=== PATIENT | female | born 1950 | race Caucasian/White ===

== ENCOUNTER 2016-12-03 10:38 | Outpatient (CLI) | payer BC ==
[2016-12-03 18:52] LABS: ALBUMIN/GLOBULIN RATIO 1.4 (1.0-2.2); BILIRUBIN,TOTAL 1.1 mg/dL (0.2-1.0); BUN - BLOOD UREA NITROGEN 19 mg/dL (6-20); CALCIUM 9.6 mg/dL (8.5-10.3); CARBON DIOXIDE - CO2 25 mmol/L (21-32); CHLORIDE 103 mmol/L (101-111); CHOL/HDL RATIO 4.1 (<4.4); CHOLESTEROL 273 mg/dL; CREATININE 0.8 mg/dL (0.4-1.0); GFR - MDRD 72 (>89); GLUCOSE 97 mg/dL (70-100); HDL CHOLESTEROL 67 mg/dL; LDL/HDL RATIO 2.7 (<4.4); POTASSIUM 4.1 mmol/L (3.5-5.0); SODIUM 136 mmol/L (135-145); TOTAL PROTEIN 7.9 g/dL (6.7-8.2); TRIGLYCERIDES 134 mg/dL; VLDL CHOLESTEROL 27 mg/dL
== END 2016-12-03 10:39 | disposition home or self-care (01) ==
LOC: LAB.F 10:38
PROVIDERS: ATTEND Internal Medicine
DX: E78.00 Pure hypercholesterolemia, unspecified (principal); M85.80 Other specified disorders of bone density and structure, unspecified site
CPT/HCPCS: 36415; 80053; 80061

== ENCOUNTER 2017-06-21 02:00 | Outpatient (CLI) | payer MEDICARE, OTHER | END 2017-06-21 02:01 | disposition critical access hospital (66) | LOC: EMS 02:00 | PROVIDERS: ATTEND Surgery | DX: K62.5 Hemorrhage of anus and rectum (principal); R55 Syncope and collapse | CPT/HCPCS: A0425; A0427 ==

== ENCOUNTER 2017-06-21 02:26 | Inpatient (IN) | payer MEDICARE, OTHER ==
--- NOTE | 2017-06-21 02:40 | ED Physician Documentation ---
PD HPI GI BLEED - Stated complaint Stated Complaint: GI BLEED - Chief complaint Chief Complaint: Abd Pain - History obtained from History obtained from: Patient - History of Present Illness Timing - onset: Enter time (20:00), Other (tonight (06/20/17)) Timing - details: Abrupt onset, Waxing and waning Pain level max: 0 Pain level now: 0 Associated symptoms: BRBPR, Diarrhea, Near syncope / syncope. No: Vomiting, Maroon stool, Black/tarry stool, Constipation, Abdominal pain, Chest pain, Fever Contributing factors: No: Aspirin use, NSAID use, Anticoagulated Improved by: Other (no ameliorating factors) Worsened by: Other (no exacerbating factors) Similar symptoms before: Has not had sx before Recently seen: Not recently seen - Additional information Additional information: at 8 PM, patient had BRBPR and loose stool. She subsequently had three more episodes of BRBPR, each time appearing to be a larger amount/volume. Approximately 45 minutes SIDE BOSS, she had just finished having hematochezia and became lightheaded and had generalized weakness. her helped her to the ground, as she was too weak to stand and felt like she was going to pass out. When medics arrived, they found her still on the floor but awake and alert. She denies h/o GI bleeding Review of Systems Constitutional: reports: Reviewed and negative Eyes: reports: Reviewed and negative Ears: reports: Reviewed and negative Nose: reports: Reviewed and negative Throat: reports: Reviewed and negative Cardiac: reports: Reviewed and negative Respiratory: reports: Reviewed and negative GI: reports: Diarrhea, Bloody / black stool. denies: Abdominal Pain, Nausea, Vomiting, Constipation : denies: Dysuria, Frequency Skin: reports: Reviewed and negative Musculoskeletal: reports: Reviewed and negative Neurologic: reports: Generalized weakness. denies: Focal weakness, Numbness PD PAST MEDICAL HISTORY - Past Medical History Past Medical History: No - Past Surgical History Past Surgical History: Yes HEENT: Tonsil/Adenoidectomy - Present Medications Home Medications: Ambulatory Orders Medication Instructions Recorded Confirmed Gabapentin 300 mg PO TID #90 capsule 06/12/14 Hydrocodone/Acetaminophen 1 - 2 each PO Q6H PRN #15 tablet 06/12/14 [Hydrocodon-Acetaminophen 5-325] Zolpidem Tartrate [Ambien] 5 mg PO QPM PRN #15 tablet 06/12/14 06/21/17 - Allergies Allergies/Adverse Reactions: Allergies Allergy/AdvReac Type Severity Reaction Status Date / Time No Known Drug Allergies Allergy Verified 06/21/17 02:32 - Living Situation Living Situation: reports: With spouse/s.o. Living Arrangement: reports: At home - Social History Does the pt smoke?: No Smoking Status: Never smoker Does the pt drink ETOH?: No Does the pt have substance abuse?: No - Immunizations Immunizations are current?: Yes - POLST Patient has POLST: No PD ED PE NORMAL - Vitals Vital signs reviewed: Yes - General General: Alert and oriented X 3, No acute distress, Well developed/nourished - HEENT HEENT: Moist mucous membranes - Neck Neck: Supple, no meningeal sign - Cardiac Cardiac: RRR, No murmur - Respiratory Respiratory: No respiratory distress, Clear bilaterally - Abdomen Abdomen: Normal bowel sounds, Soft, Non tender, Non distended - Derm Derm: Normal color, Warm and dry - Extremities Extremities: No edema - Neuro Neuro: Alert and oriented X 3, optical glass silverer 2-12 intact, No motor deficit, No sensory deficit, Normal speech Eye Opening: Spontaneous Motor: Obeys Commands Verbal: Oriented GCS Score: 15 PD ED PE EXPANDED - Rectal Rectal: Heme Occult Pos - QC + (grossly bloody, strong/rapid guaiac (+)), Automotive Parts Manager present (RN ), Other. No: Mass, Hemorrhoid, Fissure Results - Vitals Vitals: Vital Signs - 24 hr 06/21/17 06/21/17 06/21/17 02:28 03:00 03:30 Temperature 36.7 C Heart Rate 72 62 66 Respiratory 16 18 Rate Blood Pressure 130/88 H 125/72 115/67 O2 Saturation 94 96 96 Oxygen O2 Source Room air - Labs Labs: Laboratory Tests 06/21/17 06/21/17 06/21/17 02:52 02:52 02:52 WBC 6.3 RBC 2.96 L Hgb 9.3 L Hct 27.7 L MCV 93.4 MCH 31.5 H MCHC 33.7 RDW 12.0 Plt Count 164 MPV 8.7 Neut # 3.3 Lymph # 2.0 [place] # 0.6 Eos # 0.3 Baso # 0.0 Absolute Nucleated RBC 0.00 Nucleated RBC % 0.0 PT 12.1 INR 1.1 APTT 23.3 L Sodium 139 Potassium 3.5 Chloride 106 Carbon Dioxide 24 Anion Gap 9.0 BUN 22 H Creatinine 0.8 Estimated GFR (MDRD) 72 L Glucose 105 H Calcium 7.8 L PD MEDICAL DECISION MAKING - ED course Complexity details: reviewed results, re-evaluated patient, considered differential, d/w patient, d/w family ED course: 9.3 hgb without previous results to compare to. Patient has no significant medical history and says she sees her primary care provider on a regular basis. D/W Dr. Hirsch, will admit to observation for further testing. Late in ED stay, patient had increasingly frequent episodes of BRBPR. She was given a bedside commode and I was called into the room by RN due to AMS; patient was sitting on bedside commode and was pale, awake but anxious. She wanted to stand, but instructed to remain seated. She then lost consciousness, unresponsive to verbal and tactile stimulus. Continued to breathe spontaneously , held on bedside commode by RN (to prevent her from falling). I palpated left radial pulse and it was slow and thready. After approximately 45-60 seconds, patient regained consciousness and within approximately 2-3 minutes, was back to being AAOx3. She was then diaphoretic and had no recollection of the event. BP cuff was unable to give a reading during the event (it made several attempts to measure but no reading), and upon regaining consciousness, her blood pressures were in a normal range (100s SBP). I communicated this information to Dr. Hirsch. Departure - Departure Disposition: ED Place in Observation Clinical Impression: Lower GI bleeding Condition: Stable Discharge Date/Time: 06/21/17 05:08
[2017-06-21 02:56] LABS: BASOPHILS % (AUTO) 0.7 %; EOSINOPHILS # (AUTO) 0.3 10^3/uL (0.0-0.7); EOSINOPHILS % (AUTO) 5.1 %; HGB - HEMOGLOBIN 9.3 g/dL (12.0-16.0); LYMPHOCYTES % (AUTO) 31.2 %; MEAN CORPUSCULAR HEMOGLOBIN 31.5 pg (27.0-31.0); MEAN CORPUSCULAR HGB CONC 33.7 g/dL (32.0-36.0); MEAN CORPUSCULAR VOLUME 93.4 fL (81.0-99.0); MEAN PLATELET VOLUME 8.7 fL (7.9-10.8); MONOCYTES # (AUTO) 0.6 10^3/uL (0.0-1.0); MONOCYTES % (AUTO) 10.1 %; NEUTROPHILS # (AUTO) 3.3 10^3/uL (1.5-6.6); NEUTROPHILS % (AUTO) 52.9 %; PLT - PLATELET COUNT 164 10^3/uL (130-450); RED BLOOD COUNT 2.96 10^6/uL (4.20-5.40); WHITE BLOOD COUNT 6.3 x10^3/uL (4.8-10.8)
[2017-06-21 03:00] LABS: INR 1.1 (0.8-1.2); PT - PROTHROMBIN TIME 12.1 secs (9.9-12.6)
[2017-06-21 03:04] LABS: CALCIUM 7.8 mg/dL (8.5-10.3); CREATININE 0.8 mg/dL (0.4-1.0)
[2017-06-21] MEDS ORDERED: SODIUM CHLORIDE FLUSH 0.9% 10 ML SYRINGE IVP PRN (03:50)
[2017-06-21] MEDS ORDERED: TEMAZEPAM 15 MG CAPSULE PO PRN (03:50)
[2017-06-21] MEDS ORDERED: PROCHLORPERAZINE 10 MG/2 ML VIAL IVP PRN (03:50)
--- NOTE | 2017-06-21 03:55 | HISTORY & PHYSICAL EXAMINATION ---
Chief Complaint - Chief Complaint Chief Complaint: Lightheadedness, rectal bleeding History of Present Illness - Admitted From Admitted From:: home - History Obtained From History obtained from: patient, ED physician - History of Present Illness HPI Comment/Other: Mrs. Radha Borjas is a very pleasant 67-year-old female with a past medical history that is remarkable for its brevity who began to have blood per rectum this evening. After the fourth time the patient felt like she was getting lightheaded and so her asked for EMS to bring her to the emergency department. Upon examination in the emergency department the patient was found to be guaiac positive but otherwise was asymptomatic and there were no other abnormalities found. Because of the hemoglobin of 9.3 the patient's ER physician feels that the patient should be admitted because she may become hemodynamically unstable sometime in the future and so that we can monitor her hemoglobin in the morning. She will therefore be admitted to an observation bed and will recheck her hemoglobin in 3 hours. History - Past Medical History MRSA Hx?: No - Past Surgical History HEENT: reports: Tonsil/Adenoidectomy - Family & Social History Family History: Mother: Alive and Well, Father: (age 90, natural causes ) Family History Comment/Other: The patient says that her family is very healthy and that her father had dementia and of pneumonia at age 90. She denies any knowledge of any hypertension, hypercholesterolemia, coronary artery disease , myocardial infarctions, cancer, CVAs, or diabetes mellitus in the family. Living arrangement: At home Living Situation: With spouse/s.o. - Substance History Use: Uses substance without health or social issues: Alcohol Abuse: Recurrent use of substance despite neg consequences: NONE Dependence: Experiences withdrawal or developed tolerances: NONE - POLST Patient has POLST: No POLST Status: DNR Meds/Allgy - Home Medications Home Medications: Ambulatory Orders Medication Instructions Recorded Confirmed Gabapentin 300 mg PO TID #90 capsule 06/12/14 Hydrocodone/Acetaminophen 1 - 2 each PO Q6H PRN #15 tablet 06/12/14 [Hydrocodon-Acetaminophen 5-325] Zolpidem Tartrate [Ambien] 5 mg PO QPM PRN #15 tablet 06/12/14 - Allergies Allergies/Adverse Reactions: Allergies Allergy/AdvReac Type Severity Reaction Status Date / Time No Known Drug Allergies Allergy Verified 06/21/17 02:32 Review of Systems - Constitutional Constitutional: reports: Weakness. denies: Fatigue, Fever, Chills, Malaise - Eyes Eyes: denies: Pain, Irritation, Amaurosis, Field loss, Dipolpia - Ears, Nose & Throat Ears, Nose & Throat: denies: Hearing loss, Tinnitus, Vertigo, Nosebleeds, Sore throat - Cardiovascular Cariovascular: reports: Lightheadedness. denies: Irregular heart rate, Palpitations, Chest pain, Edema, Syncope - Respiratory Respiratory: denies: Cough, Sputum production, Wheezing, Snoring, SOB at rest, SOB with exertion - Gastrointestinal Gastrointestinal: reports: Diarrhea, Change in bowel habits, Rectal bleeding, Bloody stools. denies: Abdominal pain, Abdominal distention, Constipation, Nausea, Vomiting - Genitourinary Genitourinary: denies: Dysuria, Frequency, Urgency, Hematuria - Musculoskeletal Musculoskeletal: denies: Muscle pain, Back pain, Muscle aches, Stiffness - Integumentary Integumentary: denies: Rash, Pruritis, Lesions, Dryness - Neurological Neurological: denies: General weakness, Focal weakness, Headache, Dizziness - Psychiatric Psychiatric: denies: Depression, Anxiety, Suicidal, Hallucinations - Endocrine Endocrine: denies: Polyuria, Polydypsia, Polyphagia - Hematologic/Lymphatic Hematologic/Lymphatic: denies: Anemia, Bruising, Petechiae, Lymphadenopathy - All Other Systems All Other Systems: reports: Reviewed and negative Exam - Vital Signs Reviewed Vital Signs: Yes Vital Signs: Vital Signs x48h Temp Pulse Resp BP Pulse Ox 06/21/17 02:28 36.7 C 72 16 130/88 H 94 - Physical Exam General Appearance: positive: No acute distress, Alert Eyes Bilateral: positive: Normal inspection, PERRL, EOMI, No lid inflammation, Conjunctivae nml, No scleral icterus ENT: positive: ENT inspection nml, Pharynx nml, No signs of dehydration Neck: positive: Nml inspection, Thyroid nml, No JVD, Trachea midline. negative : Thyromegaly Respiratory: positive: Chest non-tender, No respiratory distress, Breath sounds nml. negative: Wheezes, Rales, Rhonchi Cardiovascular: positive: Regular rate & rhythm, No murmur, No gallop Peripheral Pulses: positive: 1+ Abdomen: positive: Non-tender, No organomegaly, Nml bowel sounds, No distention. negative: Guarding, Rebound, Mass Rectal: positive: Stool - heme POS, Bloody stool. negative: Mass Back: positive: Nml inspection. negative: CVA tenderness (R), CVA tenderness (L ) Skin: positive: Color nml, No rash, Warm, Dry. negative: Cyanosis Extremities: positive: Non-tender, Full ROM, Nml appearance Neurologic/Psychiatric: positive: Oriented x3, CN's nml (2-12), Motor nml, Sensation nml, Mood/affect nml Conclusion/Plan - Problem List (1) GI bleed Conclusion/Plan: The patient is remarkably healthy has no significant past medical history to speak of. She has a hemoglobin of 9.3. She is asymptomatic at this time. We will repeat her hemoglobin in a few hours and unless there has been a significant drop we will discharge the patient and she will follow-up with a ton container shipper or surgeon for a colonoscopy as an outpatient. - Lab Results Lab results reviewed: Yes Yonis Bones: 06/21/17 02:52 06/21/17 02:52 Core Measures - Anticipated LOS I expect patient to be DC'd or transferred within 96 hours.: Yes - DVT/VTE - Prophylaxis VTE/DVT Device ordered at admit?: Yes
[2017-06-21] MEDS ORDERED: SODIUM CHLORIDE 0.9% 1,000 ML IV ONE (05:16)
[2017-06-21 05:23] LABS: HGB - HEMOGLOBIN 8.6 g/dL (12.0-16.0); MEAN CORPUSCULAR HGB CONC 33.1 g/dL (32.0-36.0); MEAN CORPUSCULAR VOLUME 93.6 fL (81.0-99.0); MEAN PLATELET VOLUME 8.3 fL (7.9-10.8); RED BLOOD COUNT 2.77 10^6/uL (4.20-5.40); RED CELL DISTRIBUTION WIDTH 11.9 % (12.0-15.0); WHITE BLOOD COUNT 8.8 x10^3/uL (4.8-10.8)
[2017-06-21] MEDS: GABAPENTIN 300 MG CAPSULE PO SCH ×2 (06:24→14:47)
[2017-06-21] MEDS: SODIUM CHLORIDE FLUSH 0.9% 10 ML SYRINGE IVP SCH ×3 (07:00→23:47)
[2017-06-21] MEDS: PANTOPRAZOLE 40 MG TABLET PO SCH (07:28)
--- NOTE | 2017-06-21 11:04 | CONSULTATION NOTE ---
Referring Provider Name of Referring Provider:: Isra Mina Consult Date: 06/21/17 Chief Complaint - Chief Complaint Chief Complaint: GI bleed History of Present Illness - Admitted From Admitted From:: ER - History Obtained From Records Reviewed: yes History obtained from: pt, records Exam Limitations: nonw - History of Present Illness HPI Comment/Other: 67 yo female with sudden onset of painless BRBPR last night, multiple episodes associated with syncope, which prompted evaluation in the ER early this morning and subsequent admission for observation. She reports no prior similar sx and no subsequent episodes since 0430 this morning. No hx melena, abdominal pain, wt loss. She reports regular, occasionally loose bms, and no hx constipation. She is s/p remote I & D of a perirectal abscess; she denies any hemorrhoidal sx. She reports having a nl colonoscopy approximately 10 years ago. Neg Fh GI tumors. She reports heartburn and waterbrash for the past 7 months, improved with dietary changes and elevating the HOB. No dysphagia; no prior hx of PUD, no prior UGI evaluations. No recent use of NSAIDs; alcohol intake 1.5 glasses wine/day; no tobacco; caffeine: 3-4 cups of tea/day. No N/V, fever, chills. She has been hemodynamically stable since admission. Hgb dropped from 9.3 to 8.6 since admission. History - Past Medical History Cardiovascular: reports: None Respiratory: reports: None Neuro: reports: None Endocrine/Autoimmune: reports: None GI: reports: None : reports: None HEENT: reports: Chronic vision loss Psych: reports: Other (insomnia) Musculoskeletal: reports: None Derm: reports: None MRSA Hx?: No Other Past Medical History: Shingles - Past Surgical History General: reports: Colonoscopy (approx 2007, nl), Other (I & D perirectal abscess ) HEENT: reports: Tonsil/Adenoidectomy - Family & Social History Living arrangement: At home Living Situation: With spouse/s.o. - Substance History Use: Uses substance without health or social issues: Alcohol Abuse: Recurrent use of substance despite neg consequences: NONE Dependence: Experiences withdrawal or developed tolerances: NONE - POLST Patient has POLST: No POLST Status: DNR Meds/Allgy - Home Medications Home Medications: Ambulatory Orders Medication Instructions Recorded Confirmed Gabapentin 300 mg PO TID #90 capsule 06/12/14 Zolpidem Tartrate [Ambien] 10 mg PO QPM PRN 06/21/17 06/21/17 - Allergies Allergies/Adverse Reactions: Allergies Allergy/AdvReac Type Severity Reaction Status Date / Time No Known Drug Allergies Allergy Verified 06/21/17 02:32 Review of Systems - Constitutional Constitutional: denies: Fever, Chills, Weakness, Poor appetite, Weight gain, Weight loss - Cardiovascular Cariovascular: reports: Syncope - Respiratory Respiratory: denies: Cough, Sputum production, Wheezing, SOB at rest, SOB with exertion - Gastrointestinal Gastrointestinal: reports: Rectal bleeding, Bloody stools, Reflux/heartburn. denies: Abdominal pain, Abdominal distention, Constipation, Diarrhea, Black stools, Nausea, Vomiting, Bile emesis, Coffee grounds emesis, Bloating, Poor appetite - Psychiatric Psychiatric: reports: Other (insomnia) - Hematologic/Lymphatic Hematologic/Lymphatic: denies: Bruising, Blood clots, Bleeding tendencies - All Other Systems All Other Systems: reports: Reviewed and negative Exam - Vital Signs Reviewed Vital Signs: Yes Vital Signs: Vital Signs x48h Temp Pulse Pulse Pulse Pulse Pulse Resp 06/21/17 08:45 87 88 90 06/21/17 07:26 36.4 C L 65 19 06/21/17 05:08 36.2 C L 71 16 06/21/17 05:00 66 16 06/21/17 04:49 58 L 18 06/21/17 04:00 71 16 BP BP BP BP BP Pulse Ox 06/21/17 08:45 126/67 133/93 H 115/73 06/21/17 07:26 134/67 H 100 06/21/17 05:08 108/60 96 06/21/17 05:00 127/82 H 96 06/21/17 04:49 97/64 96 06/21/17 04:00 125/81 H 96 - Physical Exam General Appearance: positive: No acute distress, Alert Eyes Bilateral: positive: Normal inspection, PERRL, EOMI, Conjunctivae nml, No scleral icterus ENT: positive: ENT inspection nml, Pharynx nml, No signs of dehydration Neck: positive: Nml inspection, Thyroid nml, No JVD, Trachea midline. negative : Thyromegaly, Lymphadenopathy (R), Lymphadenopathy (L) Respiratory: positive: Chest non-tender, No respiratory distress, Breath sounds nml. negative: Wheezes, Rales, Rhonchi Cardiovascular: positive: Regular rate & rhythm, No murmur, No gallop Abdomen: positive: Non-tender, No organomegaly, No distention. negative: Guarding, Rebound, Hepatomegaly, Splenomegaly, Mass Skin: positive: Color nml, No rash, Warm, Dry Extremities: positive: Non-tender, No pedal edema. negative: Calf tenderness Neurologic/Psychiatric: positive: Oriented x3 Conclusion/Plan - Diagnosis Diagnosis: GI bleed; likely lower GI cause such as CRC, angiodysplasia, diverticular disease, internal hemorrhoids; upper gi sources as well should be considered such as PUD, H.pylori infection, GERD, UGI neoplasm, etc. She currently is hemodynamically stable but significant drop in Hgb suggests a major bleed. - Plan Plan: EGD/Colonoscopy in AM after prep today. PAR conf and consent obtained. Agree with empiric PPI therapy today. - Lab Results Lab results reviewed: Yes Fish Bones: 06/21/17 05:18 06/21/17 02:52
[2017-06-21] MEDS: POLYETHYLENE GLYCOL 3350 17 GM PACKET PO SCH (14:38)
[2017-06-21] MEDS: SODIUM/POTASSIUM/MAG SULFATES 354 ML PREP KIT PO SCH (16:57)
[2017-06-21 22:44] LABS: HGB - HEMOGLOBIN 8.5 g/dL (12.0-16.0)
[2017-06-22] MEDS: D5.45NS W/20 MEQ KCL 1,000 ML IV SCH ×2 (02:02→09:57)
[2017-06-22] MEDS: SODIUM/POTASSIUM/MAG SULFATES 354 ML PREP KIT PO SCH ×2 (03:56→07:23)
[2017-06-22 06:04] LABS: HGB - HEMOGLOBIN 8.9 g/dL (12.0-16.0); MEAN CORPUSCULAR HEMOGLOBIN 31.5 pg (27.0-31.0); MEAN CORPUSCULAR HGB CONC 33.5 g/dL (32.0-36.0); MEAN PLATELET VOLUME 8.7 fL (7.9-10.8); RED BLOOD COUNT 2.83 10^6/uL (4.20-5.40); WHITE BLOOD COUNT 5.5 x10^3/uL (4.8-10.8)
[2017-06-22] MEDS: PANTOPRAZOLE 40 MG TABLET PO SCH (06:44)
[2017-06-22] MEDS: POLYETHYLENE GLYCOL 3350 17 GM PACKET PO SCH (07:22)
[2017-06-22] MEDS: SODIUM CHLORIDE FLUSH 0.9% 10 ML SYRINGE IVP SCH ×2 (07:22→20:34)
[2017-06-22] MEDS ORDERED: MIDAZOLAM 2 MG/2 ML VIAL IVP ONE (07:45)
[2017-06-22] MEDS ORDERED: fentaNYL 250 MCG/5 ML VIAL IVP ONE (07:45)
[2017-06-22] MEDS ORDERED: LACTATED RINGERS 1,000 ML IV ONE (07:45)
[2017-06-22] MEDS ORDERED: LIDOCAINE 1% 50 ML MDV TOP ONE (08:04)
[2017-06-22] MEDS ORDERED: LIDO GARGLE 30 ML BOTTLE ONE (08:04)
[2017-06-22] MEDS ORDERED: BENZOCAINE/TETRACAINE/BUTAMBEN SPRAY 56 GM TOP ONE (08:05)
[2017-06-22 10:58] LABS: HGB - HEMOGLOBIN 7.2 g/dL (12.0-16.0)
[2017-06-22] MEDS: FERROUS SULFATE 325 MG TABLET PO SCH (13:26)
--- NOTE | 2017-06-22 14:45 | PROVIDER PROGRESS NOTE ---
Subjective - Prog Note Date Prog Note Date: 06/22/17 - Subjective Pt reports feeling: Improved Subjective: pt is alert and oriented. Pt does not report any complaints today. Pt does report she had fresh GI bleeding on yesterday. Current Medications - Current Medications Current Medications: Active Medications Ferrous Sulfate (Feosol) 325 mg PO DAILYWM [facility] Last Admin: 06/22/17 13:26 Dose: 325 mg Pantoprazole Sodium (Protonix) 40 mg PO QDAC [facility] Last Admin: 06/22/17 06:44 Dose: Not Given Polyethylene Glycol (Miralax) 17 gm PO DAILY [facility] Last Admin: 06/22/17 07:22 Dose: Not Given Prochlorperazine Edisylate (Compazine Inj) 10 mg IVP Q6HR PRN PRN Reason: Nausea / Vomiting Sodium Chloride (Normal Saline Flush 0.9%) 10 ml IVP PRN PRN PRN Reason: NEEDED PER PROVIDER ORDERS Sodium Chloride (Normal Saline Flush 0.9%) 10 ml IVP 0100,0900,1700 [facility] Last Admin: 06/22/17 07:22 Dose: Not Given Sodium Sulfate/Potass Sulf/Mag Sulf (Suprep Bowel Prep Kit) 177 ml PO 1700, 0400 [facility] Last Admin: 06/22/17 07:23 Dose: Not Given Temazepam (Restoril) 15 mg PO QPM PRN PRN Reason: Insomnia Zolpidem Tartrate [Ambien] 5 mg PO QPM PRN 06/21/17 Objective - Vital Signs/Intake & Output Reviewed Vital Signs: Yes Vital Signs: Vital Signs x48h Temp Pulse Resp BP Pulse Ox 06/22/17 12:05 36.7 C 78 17 128/59 L 100 06/22/17 11:28 36.6 C 06/22/17 10:40 82 18 133/64 H 100 06/22/17 09:22 82 16 102/55 L 100 06/22/17 08:45 79 18 91/49 L 100 06/22/17 07:43 36.4 C L 78 18 116/63 99 Intake & Output: Intake & Output 06/19/17 06/20/17 06/21/17 06/22/17 23:59 23:59 23:59 23:59 Intake Total 2009 1589.166 Balance 2009 1589.166 - Objective General Appearance: positive: No acute distress, Alert. negative: Lethargic Eyes Bilateral: positive: Normal inspection, PERRL, No lid inflammation, Conjunctivae nml ENT: positive: ENT inspection nml, Pharynx nml, No signs of dehydration. negative: Purulent nasal drainage, Pharyngeal erythema, Oral lesions Neck: positive: Nml inspection, Thyroid nml, No JVD, Trachea midline. negative : Thyromegaly, Stiff neck, Carotid bruit, Swelling/bruising, Tracheal deviation Respiratory: positive: Chest non-tender, No respiratory distress, Breath sounds nml. negative: Wheezes, Rales, Rhonchi Cardiovascular: positive: Regular rate & rhythm, No murmur, No gallop. negative : Irregularly irregular, Extrasystoles, Tachycardia, Bradycardia, Systolic murmur, Diastolic murmur Peripheral Pulses: 2+ Radial (R), 2+ Radial (L), 2+ Dorsalis pedis (R), 2+ Dorsalis pedis (L) Abdomen: positive: Non-tender, No organomegaly, Nml bowel sounds, No distention. negative: Tenderness, Guarding, Rebound Back: positive: Nml inspection. negative: CVA tenderness (R), CVA tenderness (L ) Skin: positive: Color nml, No rash, Warm, Dry. negative: Cyanosis, Diaphoresis , Pallor Extremities: positive: Non-tender, Full ROM, Nml appearance. negative: Calf tenderness, Joint swelling, Tierney's sign/cords Neurologic/Psychiatric: positive: Oriented x3, Motor nml, Sensation nml, Mood/ affect nml. negative: Sensory loss, Facial droop, Slurred/abnml speech, Depressed mood/affect - Lab Results Fish Bones: 06/22/17 10:42 06/21/17 02:52 Other Labs: Lab Results x24hrs 06/22/17 06/22/17 06/22/17 Range/Units 11:50 10:42 05:52 WBC 5.5 (4.8-10.8) x10^3/uL RBC 2.83 L (4.20-5.40) 10^6/uL Hgb 7.2 L 8.9 L (12.0-16.0) g/dL Hct 21.6 L 26.6 L (37.0-47.0) % MCV 94.0 (81.0-99.0) fL MCH 31.5 H (27.0-31.0) pg MCHC 33.5 (32.0-36.0) g/dL RDW 12.0 (12.0-15.0) % Plt Count 201 (130-450) 10^3/uL MPV 8.7 (7.9-10.8) fL Blood Type O POSITIVE Antibody Screen NEGATIVE 06/21/17 Range/Units 22:30 WBC (4.8-10.8) x10^3/uL RBC (4.20-5.40) 10^6/uL Hgb 8.5 L (12.0-16.0) g/dL Hct 25.7 L (37.0-47.0) % MCV (81.0-99.0) fL MCH (27.0-31.0) pg MCHC (32.0-36.0) g/dL RDW (12.0-15.0) % Plt Count (130-450) 10^3/uL MPV (7.9-10.8) fL Blood Type Antibody Screen Assessment/Plan - Problem List (1) GI bleed Impression: - Problem List Conclusion/Plan: pt had EGD and colonoscopy today morning. surgeon report pt did not have acute bleed in the EGD and colonoscopy but report pt had diverticurosis which could cause pt had GI bleeding. Also pt had hx of gastric ulcer. Surgeon recommend pt stay one more night at hospital to monitor if pt continue to have GI bleeding. pt is asymptomatic for anemia currently switch pt into inpt status add H&H add type and screen continue vital monitor The patient is remarkably healthy has no significant past medical history to speak of. She has a hemoglobin of 9.3. She is asymptomatic at this time. We will repeat her hemoglobin in a few hours and unless there has been a significant drop we will discharge the patient and she will follow-up with a mobile equipment operator or surgeon for a colonoscopy as an outpatient.
--- NOTE | 2017-06-22 17:50 | PROVIDER PROGRESS NOTE ---
Subjective - Prog Note Date Prog Note Date: 06/22/17 Prog Note Time: 17:48 - Subjective Pt reports feeling: Improved (no bm's since EGD/colon this am.) Objective - Vital Signs/Intake & Output Reviewed Vital Signs: Yes Vital Signs: Vital Signs x48h Temp Pulse Resp BP Pulse Ox 06/22/17 15:47 36.9 C 85 18 126/58 L 98 06/22/17 12:05 36.7 C 78 17 128/59 L 100 06/22/17 11:28 36.6 C 06/22/17 10:40 82 18 133/64 H 100 Intake & Output: Intake & Output 06/19/17 06/20/17 06/21/17 06/22/17 23:59 23:59 23:59 23:59 Intake Total 2009 1589.166 Balance 2009 1589.166 - Objective General Appearance: positive: No acute distress, Alert Eyes Bilateral: positive: Conjunctivae nml, No scleral icterus ENT: positive: No signs of dehydration Neck: positive: Nml inspection Skin: positive: Color nml - Lab Results Fish Bones: 06/22/17 10:42 06/21/17 02:52 Other Labs: Lab Results x24hrs 06/22/17 06/22/17 06/22/17 Range/Units 11:50 10:42 05:52 WBC 5.5 (4.8-10.8) x10^3/uL RBC 2.83 L (4.20-5.40) 10^6/uL Hgb 7.2 L 8.9 L (12.0-16.0) g/dL Hct 21.6 L 26.6 L (37.0-47.0) % MCV 94.0 (81.0-99.0) fL MCH 31.5 H (27.0-31.0) pg MCHC 33.5 (32.0-36.0) g/dL RDW 12.0 (12.0-15.0) % Plt Count 201 (130-450) 10^3/uL MPV 8.7 (7.9-10.8) fL Blood Type O POSITIVE Antibody Screen NEGATIVE 06/21/17 Range/Units 22:30 WBC (4.8-10.8) x10^3/uL RBC (4.20-5.40) 10^6/uL Hgb 8.5 L (12.0-16.0) g/dL Hct 25.7 L (37.0-47.0) % MCV (81.0-99.0) fL MCH (27.0-31.0) pg MCHC (32.0-36.0) g/dL RDW (12.0-15.0) % Plt Count (130-450) 10^3/uL MPV (7.9-10.8) fL Blood Type Antibody Screen - Other Results/Comments Other Results/Comments: EGD showed LA Grade B erosive esophagitis, nonbleeding. Colon showed moderate left sided tics, a small amount of fresh/recent blood in colon, no active bleeding site identified. Assessment/Plan - Problem List (1) GI bleed Impression: clinically resolving, likely diverticular in nature. Rec observation overnight and consider d/c home tomorrow if remains stable. If rebleeds, pt will need a localization study such as a tagged RBC scan. Qualifiers: GI bleed type/associated pathology: diverticulosis Qualified Code(s): K57.91 - Diverticulosis of intestine, part unspecified, without perforation or abscess with bleeding (2) Erosive esophagitis Impression: LA Grade B, probably not the cause of this patient's GI bleed; Rec: RX PPI x 3 months, then repeat EGD to document healing. Medications/Allergies - Medications Active Medication List: Active Medications Ferrous Sulfate (Feosol) 325 mg PO DAILYWM [facility] Last Admin: 06/22/17 13:26 Dose: 325 mg Pantoprazole Sodium (Protonix) 40 mg PO QDAC [facility] Last Admin: 06/22/17 06:44 Dose: Not Given Polyethylene Glycol (Miralax) 17 gm PO DAILY [facility] Last Admin: 06/22/17 07:22 Dose: Not Given Prochlorperazine Edisylate (Compazine Inj) 10 mg IVP Q6HR PRN PRN Reason: Nausea / Vomiting Sodium Chloride (Normal Saline Flush 0.9%) 10 ml IVP PRN PRN PRN Reason: NEEDED PER PROVIDER ORDERS Sodium Chloride (Normal Saline Flush 0.9%) 10 ml IVP 0100,0900,1700 [facility] Last Admin: 06/22/17 07:22 Dose: Not Given Sodium Sulfate/Potass Sulf/Mag Sulf (Suprep Bowel Prep Kit) 177 ml PO 1700, 0400 [facility] Last Admin: 06/22/17 07:23 Dose: Not Given Temazepam (Restoril) 15 mg PO QPM PRN PRN Reason: Insomnia Zolpidem Tartrate [Ambien] 5 mg PO QPM PRN 06/21/17 - Allergies Allergies/Adverse Reactions: Allergies Allergy/AdvReac Type Severity Reaction Status Date / Time No Known Drug Allergies Allergy Verified 06/21/17 02:32
[2017-06-22 19:00] LABS: HGB - HEMOGLOBIN 7.3 g/dL (12.0-16.0)
[2017-06-23] MEDS: SODIUM CHLORIDE FLUSH 0.9% 10 ML SYRINGE IVP SCH ×2 (00:04→09:36)
[2017-06-23] MEDS: SODIUM/POTASSIUM/MAG SULFATES 354 ML PREP KIT PO SCH (00:09)
[2017-06-23 02:15] LABS: HGB - HEMOGLOBIN 6.4 g/dL (12.0-16.0)
[2017-06-23] MEDS ORDERED: ACETAMINOPHEN 325 MG TABLET PO SCH (02:33)
[2017-06-23] MEDS: diphenhydrAMINE 25 MG CAPSULE PO SCH ×2 (03:28→04:29)
[2017-06-23] MEDS: PANTOPRAZOLE 40 MG TABLET PO SCH (06:13)
--- NOTE | 2017-06-23 08:30 | PROVIDER PROGRESS NOTE ---
Assessment/Plan - Problem List (1) GI bleed Qualifiers: GI bleed type/associated pathology: diverticulosis Qualified Code(s): K57.91 - Diverticulosis of intestine, part unspecified, without perforation or abscess with bleeding Assessment/Plan: Evidence of continued active bleeding; exact site unclear, but probably colonic , diverticular in etiology. Rec: Transfuse and transfer to facility for localization procedure such as RBC scan &/or angiography with possible IR therapy. Discussed with pt and hospitialist who agrees with this plan. (2) Erosive esophagitis Assessment/Plan: asymptomatic on PPI therapy. Rec: continue same; needs f/u EGD in 2-3 months to document satisfactory healing. - Current Meds Current Meds: Current Medications Generic Name Dose Route Start Last Admin Trade Name Freq PRN Reason Stop Dose Admin Ferrous Sulfate 325 mg 06/22/17 12:00 06/22/17 13:26 Feosol PO 325 mg DAILYWM [facility] Administration Pantoprazole Sodium 40 mg 06/21/17 07:00 06/23/17 06:13 Protonix PO 40 mg QDAC [facility] Administration Polyethylene Glycol 17 gm 06/21/17 09:00 06/22/17 07:22 Miralax PO Not Given DAILY [facility] Sodium Chloride 10 ml 06/21/17 03:50 06/23/17 03:35 Normal Saline Flush 0.9% IVP 10 ml PRN PRN Administration NEEDED PER PROVIDER ORDERS Sodium Chloride 10 ml 06/21/17 09:00 06/23/17 00:04 Normal Saline Flush 0.9% IVP 10 ml 0100,0900,1700 [facility] Administration Sodium Sulfate/Potass Sulf/Mag Sulf 177 ml 06/21/17 17:00 06/23/17 00:09 Suprep Bowel Prep Kit PO Not Given 1700,0400 [facility] - Lab Result Lab results reviewed: Yes Fish Bone Diagrams: 06/23/17 02:05 06/21/17 02:52 - Additional Planning Condition/Complexity: Stable (hemodynamicaly stable but active bleeding continues.) My Orders: My Active Orders 06/22/17 Lunch Regular Diet [DIET] Plan Discussed with:: Patient, Other (hospitalist) Time Spent: 15-30 minutes Subjective - Subjective Patient Reports: Resting Comfortably, Other (passing 3 grossly bloody stools overnight) Nursing Reports: No Complaints Objective Vital Signs: Vital Signs - 24 hr 06/22/17 06/22/17 06/22/17 08:45 09:22 10:40 Temperature Heart Rate Heart Rate [ Apical] Heart Rate [ 79 82 82 Brachial] Respiratory 18 16 18 Rate Blood Pressure Blood Pressure 91/49 L 102/55 L 133/64 H [Right Brachial artery] O2 Saturation 100 100 100 06/22/17 06/22/17 06/22/17 11:28 12:05 15:47 Temperature 36.6 C 36.7 C 36.9 C Heart Rate Heart Rate [ Apical] Heart Rate [ 78 85 Brachial] Respiratory 17 18 Rate Blood Pressure Blood Pressure 128/59 L 126/58 L [Right Brachial artery] O2 Saturation 100 98 06/22/17 06/22/17 06/23/17 19:12 20:32 00:48 Temperature 37.0 C 37.1 C 36.4 C L Heart Rate Heart Rate [ 95 Apical] Heart Rate [ 103 H 91 Brachial] Respiratory 18 18 16 Rate Blood Pressure Blood Pressure 105/58 L 108/60 119/61 [Right Brachial artery] O2 Saturation 100 98 99 06/23/17 06/23/17 06/23/17 03:37 04:05 04:43 Temperature 36.8 C 36.6 C 36.6 C Heart Rate 87 84 Heart Rate [ Apical] Heart Rate [ 74 Brachial] Respiratory 16 16 16 Rate Blood Pressure 127/61 128/61 Blood Pressure 115/50 L [Right Brachial artery] O2 Saturation 99 06/23/17 06/23/17 07:52 07:58 Temperature 36.9 C 36.9 C Heart Rate 72 78 Heart Rate [ Apical] Heart Rate [ Brachial] Respiratory 16 16 Rate Blood Pressure 131/58 H 131/58 H Blood Pressure [Right Brachial artery] O2 Saturation Oxygen O2 Source Nasal cannula I&O (Last 24 Hrs): Intake and Output Totals x24h 06/21/17 06/22/17 06/23/17 23:59 23:59 23:59 Intake Total 2009 1789.166 372 Output Total 200 Balance 2009 1789.166 172 General: Alert, No acute distress Neck: No JVD Abdomen: Soft, No tenderness, No hepatospenomegaly, No masses Rectal: Bloody Stool (x 3 overnight) - Results Results: Laboratory Results WBC 5.5 x10^3/uL (4.8-10.8) 06/22/17 05:52 RBC 2.83 10^6/uL (4.20-5.40) L 06/22/17 05:52 Hgb 6.4 g/dL (12.0-16.0) L* 06/23/17 02:05 Hct 18.6 % (37.0-47.0) L* 06/23/17 02:05 MCV 94.0 fL (81.0-99.0) 06/22/17 05:52 MCH 31.5 pg (27.0-31.0) H 06/22/17 05:52 MCHC 33.5 g/dL (32.0-36.0) 06/22/17 05:52 RDW 12.0 % (12.0-15.0) 06/22/17 05:52 Plt Count 201 10^3/uL (130-450) 06/22/17 05:52 MPV 8.7 fL (7.9-10.8) 06/22/17 05:52 Neut # 3.3 10^3/uL (1.5-6.6) 06/21/17 02:52 Lymph # 2.0 10^3/uL (1.5-3.5) 06/21/17 02:52 [place] # 0.6 10^3/uL (0.0-1.0) 06/21/17 02:52 Eos # 0.3 10^3/uL (0.0-0.7) 06/21/17 02:52 Baso # 0.0 10^3/uL (0.0-0.1) 06/21/17 02:52 Absolute Nucleated RBC 0.00 x10^3/uL 06/21/17 02:52 Nucleated RBC % 0.0 /100WBC 06/21/17 02:52 PT 12.1 secs (9.9-12.6) 06/21/17 02:52 INR 1.1 (0.8-1.2) 06/21/17 02:52 APTT 23.3 secs (24.9-33.3) L 06/21/17 02:52 Sodium 139 mmol/L (135-145) 06/21/17 02:52 Potassium 3.5 mmol/L (3.5-5.0) 06/21/17 02:52 Chloride 106 mmol/L (101-111) 06/21/17 02:52 Carbon Dioxide 24 mmol/L (21-32) 06/21/17 02:52 Anion Gap 9.0 (6-13) 06/21/17 02:52 BUN 22 mg/dL (6-20) H 06/21/17 02:52 Creatinine 0.8 mg/dL (0.4-1.0) 06/21/17 02:52 Estimated GFR (MDRD) 72 (>89) L 06/21/17 02:52 Glucose 105 mg/dL (70-100) H 06/21/17 02:52 Calcium 7.8 mg/dL (8.5-10.3) L 06/21/17 02:52 Blood Type O POSITIVE 06/22/17 11:50 Blood Type Recheck O POSITIVE 06/23/17 02:05 Antibody Screen NEGATIVE 06/22/17 11:50 Crossmatch IS Only See Detail 06/22/17 11:50
[2017-06-23] MEDS: POLYETHYLENE GLYCOL 3350 17 GM PACKET PO SCH (09:36)
[2017-06-23] MEDS: FERROUS SULFATE 325 MG TABLET PO SCH (09:36)
[2017-06-23 10:56] VITALS: BP 127/68
--- NOTE | 2017-06-23 11:35 | DISCHARGE SUMMARY ---
"Discharge Summary Discharge Date: 06/23/17 Discharging Provider: LEUNG Primary Care Provider: Dr. Luz Bashir Condition at Discharge: Stable Discharge Disposition: Transfer Acute Care Hosp Discharge Facility Name: [facility] - DIAGNOSES Admission Diagnoses: (1) GI bleed Discharge Diagnoses with Status of Each Condition: (1) acute GI bleeding transferred to [facility] for localization procedure such as RBC scan &/ or angiography with possible IR therapy (2) Erosive esophagitis continue PPI and managed by PCP - HPI History of Present Illness: refer from Dr. Hirsch's HPI on 06/21/17 for pt as the following: Mrs. Radha Borjas is a very pleasant 67-year-old female with a past medical history that is remarkable for its brevity who began to have blood per rectum this evening. After the fourth time the patient felt like she was getting lightheaded and so her asked for EMS to bring her to the emergency department. Upon examination in the emergency department the patient was found to be guaiac positive but otherwise was asymptomatic and there were no other abnormalities found. Because of the hemoglobin of 9.3 the patient's ER physician feels that the patient should be admitted because she may become hemodynamically unstable sometime in the future and so that we can monitor her hemoglobin in the morning. She will therefore be admitted to an observation bed and will recheck her hemoglobin in 3 hours. - CONSULTS | PROCEDURES Consultations: Dr. Ac Matute Procedures: EGD and Colonoscopy - HOSPITAL COURSE Hospital Course: Pt was admitted for anemia and GI bleeding. Pt had EGD and colonoscopy with surgeon Dr. Ac Matute. Unfortunately surgeon did not find the acute bleeding site in the procedure but pt continue to have acute GI bleeding. Call was made for pt to be transferred to other facility for further evaluation and treatment. Pt was accepted and transferred to [facility]. - ALLERGIES Allergies/Adverse Reactions: Allergies Allergy/AdvReac Type Severity Reaction Status Date / Time No Known Drug Allergies Allergy Verified 06/21/17 02:32 - MEDICATIONS Home Medications: Ambulatory Orders Medication Instructions Recorded Confirmed Zolpidem Tartrate [Ambien] 5 mg PO QPM PRN 06/21/17 06/21/17 - PHYSICAL EXAM AT DISCHARGE General Appearance: positive: No acute distress, Alert. negative: Lethargic Eyes Bilateral: positive: Normal inspection, PERRL, No lid inflammation, Conjunctivae nml ENT: positive: ENT inspection nml, Pharynx nml, No signs of dehydration. negative: Purulent nasal drainage, Pharyngeal erythema, Oral lesions Neck: positive: Nml inspection, Thyroid nml, No JVD, Trachea midline. negative : Thyromegaly, Lymphadenopathy (R), Lymphadenopathy (L), Stiff neck, Carotid bruit, Swelling/bruising, Tracheal deviation Respiratory: positive: Chest non-tender, No respiratory distress, Breath sounds nml. negative: Wheezes, Rales, Rhonchi Cardiovascular: positive: Regular rate & rhythm, No murmur, No gallop. negative : Irregularly irregular, Extrasystoles, Tachycardia, Bradycardia, Systolic murmur, Diastolic murmur Peripheral Pulses: positive: 2+ Abdomen: positive: Non-tender, No organomegaly, Nml bowel sounds, No distention. negative: Tenderness, Guarding, Rebound Back: positive: Nml inspection. negative: CVA tenderness (R), CVA tenderness (L ) Skin: positive: Color nml, No rash, Warm, Dry. negative: Cyanosis, Diaphoresis , Pallor Extremities: positive: Non-tender, Full ROM, Nml appearance. negative: Calf tenderness, Joint swelling, Tierney's sign/cords Neurologic/Psychiatric: positive: Oriented x3, Motor nml, Sensation nml, Mood/ affect nml, Weakness. negative: Sensory loss, Facial droop, Slurred/abnml speech, Depressed mood/affect - LABS Result Diagrams: 06/23/17 11:35 06/21/17 02:52 - FOLLOW UP Follow Up: transfer to [facility] for further evaluation and treatment - TIME SPENT Time Spent in Discharge (Minutes): 55"
[2017-06-23 11:59] LABS: HGB - HEMOGLOBIN 9.7 g/dL (12.0-16.0); MEAN CORPUSCULAR HEMOGLOBIN 30.4 pg (27.0-31.0); MEAN CORPUSCULAR HGB CONC 34.4 g/dL (32.0-36.0); MEAN CORPUSCULAR VOLUME 88.6 fL (81.0-99.0); MEAN PLATELET VOLUME 8.6 fL (7.9-10.8); RED BLOOD COUNT 3.2 10^6/uL (4.20-5.40); RED CELL DISTRIBUTION WIDTH 15.3 % (12.0-15.0); WHITE BLOOD COUNT 6.4 x10^3/uL (4.8-10.8)
[2017-06-23] MEDS ORDERED: SODIUM CHLORIDE 0.9% 1,000 ML IV SCH (12:00)
[2017-06-23] MEDS ORDERED: PANTOPRAZOLE 40 MG VIAL IVP SCH (12:00)
== END 2017-06-23 13:40 | disposition short-term general hospital (02) | DRG 378 ==
LOC: EDUNIT# → SUPCPDRO 02:26 → ED 02:26 → OBS 03:50 → OBSVTOIN 06-22 10:15 → MS2 06-22 14:23
PROVIDERS: ADMIT Hospitalist; ATTEND Nurse Practitioner Gerontology
PROC: 0DJD8ZZ Inspection of Lower Intestinal Tract, Via Natural or Artificial Opening Endoscopic (ICD-10-PCS; 2017-06-22)
PROC: 0DB48ZX Excision of Esophagogastric Junction, Via Natural or Artificial Opening Endoscopic, Diagnostic (ICD-10-PCS; principal; 2017-06-22 07:30)
PROC: 0DB38ZX Excision of Lower Esophagus, Via Natural or Artificial Opening Endoscopic, Diagnostic (ICD-10-PCS; 2017-06-22 07:30)
PROC: 30233N1 Transfusion of Nonautologous Red Blood Cells into Peripheral Vein, Percutaneous Approach (ICD-10-PCS; 2017-06-23)
DX: K57.31 Diverticulosis of large intestine without perforation or abscess with bleeding (principal); D62 Acute posthemorrhagic anemia; K25.4 Chronic or unspecified gastric ulcer with hemorrhage; K22.11 Ulcer of esophagus with bleeding; R55 Syncope and collapse; R12 Heartburn; Z66 Do not resuscitate
CPT/HCPCS: 43239; 45378; G0378; 36415; 80048; 85014; 85018; 85025; 85610; 85730; 86850; 86900; 86901; 86920; 88305; 88341; 88342; 93005; 99284